=== PATIENT | male | born 1975 | race Caucasian/White ===

== ENCOUNTER 2020-12-25 04:03 | Emergency (ER) | payer OTHER ==
[~2020-12-25 04:03] MED LIST: MOBIC15 MG PO
[2020-12-25] MEDS ORDERED: VIBRAMYCIN 100100 MG PO (04:24)
== END 2020-12-25 04:41 | disposition home or self-care (01) ==
LOC: ER1 04:03
DX: S41.151A Open bite of right upper arm, initial encounter (principal); E11.9 Type 2 diabetes mellitus without complications; Z88.0 Allergy status to penicillin; W50.3XXA Accidental bite by another person, initial encounter
CPT/HCPCS: 99283